=== PATIENT | female | born 1970 | race Caucasian/White ===

== ENCOUNTER → 2020-06-28 | Outpatient (CLI) | payer OTHER ==
[2020-06-29 11:14] LABS: RHEUMATOID ARTHRITIS FACTOR 10.4 IU/mL (0.0-13.9)
== END ==
LOC: LAB 13:35
PROVIDERS: Nurse Practitioner Family
DX: R53.83 Other fatigue (principal); M79.10 Myalgia, unspecified site; R76.8 Other specified abnormal immunological findings in serum; M25.50 Pain in unspecified joint; D89.9 Disorder involving the immune mechanism, unspecified
CPT/HCPCS: 36415; 81001; 82550; 82570; 83520; 84156; 85652; 86140; 86160; 86162; 86200; 86431